=== PATIENT | female | born 1965 | race Two or more races ===

== ENCOUNTER 2021-10-31 18:23 | Emergency (ER) | payer OTHER ==
[~2021-10-31] VITALS: Ht 152.4 cm; Wt 84.4 kg
--- NOTE | 2021-10-31 18:54 | NUR ---
TAKEN TO ER 13,CHANGED INTO [facility], AWAITING MD ORDOÑEZ
[2021-10-31] MEDS: KETOROLAC TROMETHAMINE INJ 60 MG/2 ML VIAL IM ONE (19:30)
--- NOTE | 2021-10-31 19:40 | NUR ---
us at bedside
[2021-10-31] MEDS ORDERED: KETOROLAC TROMETHAMINE INJ 30 MG/ML VIAL ONE (19:52)
--- NOTE | 2021-10-31 19:55 | NUR ---
urine sent to lab
--- NOTE | 2021-10-31 20:27 | NUR ---
CALLED KIKA TO HAVE IMAGE READ
[2021-10-31] MEDS ORDERED: NAPR-1303 PO (21:40)
--- NOTE | 2021-10-31 21:55 | NUR ---
PT D/C. EXPLAINED DR ALONZO. ICE/ELEVATE LEGS, OSD CLERK PRESCRIPTION FROM [employer], AND VISIT PCP. PT AMBULATED AND LEFT WALKING. GIVEN RAGIOLOGY CD.
[2021-11-01 00:05] VITALS: BP 155/90
== END 2021-10-31 21:57 | disposition home or self-care (01) ==
LOC: ER 18:23
DX: M17.0 Bilateral primary osteoarthritis of knee (principal); M79.89 Other specified soft tissue disorders; I10 Essential (primary) hypertension; E11.9 Type 2 diabetes mellitus without complications
CPT/HCPCS: 73564 ×2; 93970; 96372; 99284; J1885